=== PATIENT | female | born 1990 | race Caucasian/White ===

== ENCOUNTER 2016-08-23 07:37 | Emergency (ER) | payer SELFPAY ==
[~2016-08-23] VITALS: Ht 157.5 cm; Wt 117.9 kg
[2016-08-23 11:55] VITALS: BP 124/67
== END 2016-08-23 11:55 | disposition home or self-care (01) ==
LOC: ED 07:37
DX: J20.9 Acute bronchitis, unspecified (principal); N39.0 Urinary tract infection, site not specified
CPT/HCPCS: Q0092

== ENCOUNTER 2017-07-22 17:24 | Emergency (ER) | payer SELFPAY ==
[~2017-07-22] VITALS: Ht 157.5 cm; Wt 119.7 kg
[2017-07-22 17:28] VITALS: Ht 157.5 cm; Wt 119.7 kg
[2017-07-22 19:25] VITALS: BP 125/75
== END 2017-07-22 19:25 | disposition home or self-care (01) ==
LOC: ED 17:24
DX: T23.221A Burn of second degree of single right finger (nail) except thumb, initial encounter (principal); X08.8XXA Exposure to other specified smoke, fire and flames, initial encounter; Y93.89 Activity, other specified; Y92.89 Other specified places as the place of occurrence of the external cause; Y99.8 Other external cause status

== ENCOUNTER 2017-12-24 06:45 | Emergency (ER) | payer SELFPAY ==
[~2017-12-24] VITALS: Ht 157.5 cm; Wt 123.4 kg
[2017-12-24 06:51] VITALS: Ht 157.5 cm; Wt 123.4 kg
[2017-12-24 08:10] LABS: UA SPECIFIC GRAVITY >=1.030 (1.005-1.035); microscopic required? YES; urine erythrocyte 3+ (NEGATIVE)
[2017-12-24 08:18] LABS: BASOPHIL % 0.9 % (0-2); PLATELET COUNT 227 x10^3mcL (130-400); RED CELL DISTRIBUTION WIDTH 13.9 % (11.5-14.5)
[2017-12-24 09:19] LABS: ALBUMIN 3.5 g/dL (3.4-5.0); ALKALINE PHOSPHATASE 69 U/L (46-116); ALT/SGPT 50 U/L (14-59); AST/SGOT 24 U/L (15-37); BILIRUBIN TOTAL 0.6 mg/dL (0.20-1.00); CALCIUM 7.8 mg/dL (8.5-10.1); CHLORIDE SERUM 104 mmol/L (98-107); CREATININE SERUM 0.5 mg/dL (0.6-1.0); GFR1 > 60 mL/min; GLUCOSE SERUM 90 mg/dL (74-106); POTASSIUM SERUM 3.6 mmol/L (3.5-5.1); SODIUM SERUM 137 mmol/L (136-145); TOTAL PROTEIN, SERUM 6.9 g/dL (6.4-8.2)
[2017-12-24 09:40] VITALS: BP 145/76
[2017-12-24 09:48] LABS: CARBON DIOXIDE 21 mmol/L (21-32)
== END 2017-12-24 09:40 | disposition home or self-care (01) ==
LOC: ED 06:45
PROVIDERS: Emergency Medicine
DX: O26.899 Other specified pregnancy related conditions, unspecified trimester (principal); R51 Headache; R11.10 Vomiting, unspecified; M25.529 Pain in unspecified elbow; M25.569 Pain in unspecified knee; R35.0 Frequency of micturition; R82.71 Bacteriuria; Z3A.00 Weeks of gestation of pregnancy not specified
CPT/HCPCS: J2765; J7030

== ENCOUNTER 2018-01-18 11:34 | Emergency (ER) | payer MEDICAID ==
[~2018-01-18] VITALS: Ht 157.5 cm; Wt 123.4 kg
[2018-01-18 11:53] VITALS: Ht 157.5 cm; Wt 123.4 kg
[2018-01-18 12:59] LABS: UA SPECIFIC GRAVITY >=1.030 (1.005-1.035); microscopic required? YES; urine erythrocyte 2+ (NEGATIVE)
[2018-01-18 12:59] LABS: BASOPHIL % 0.8 % (0-2); PLATELET COUNT 252 x10^3mcL (130-400); RED CELL DISTRIBUTION WIDTH 13.4 % (11.5-14.5)
[2018-01-18 13:09] LABS: CALCIUM 8.4 mg/dL (8.5-10.1); CARBON DIOXIDE 23.5 mmol/L (21-32); CHLORIDE SERUM 105 mmol/L (98-107); CREATININE SERUM 0.6 mg/dL (0.6-1.0); GFR1 > 60 mL/min; GLUCOSE SERUM 110 mg/dL (74-106); POTASSIUM SERUM 3.9 mmol/L (3.5-5.1); SODIUM SERUM 138 mmol/L (136-145)
[2018-01-18 14:38] VITALS: BP 114/56
== END 2018-01-18 14:38 | disposition home or self-care (01) ==
LOC: ED 11:34
PROVIDERS: Emergency Medicine
DX: O23.41 Unspecified infection of urinary tract in pregnancy, first trimester (principal); Z3A.09 9 weeks gestation of pregnancy
CPT/HCPCS: J7030

== ENCOUNTER 2018-02-28 22:36 | Emergency (ER) | payer MEDICAID ==
[~2018-02-28] VITALS: Ht 157.5 cm; Wt 122.9 kg
[2018-02-28 22:45] VITALS: Ht 157.5 cm; Wt 122.9 kg
[2018-03-01 00:28] VITALS: BP 104/70
== END 2018-03-01 00:28 | disposition home or self-care (01) ==
LOC: ED 22:36
DX: O23.42 Unspecified infection of urinary tract in pregnancy, second trimester (principal); Z88.0 Allergy status to penicillin; Z3A.15 15 weeks gestation of pregnancy

== ENCOUNTER 2018-03-27 17:18 | Emergency (ER) | payer MEDICAID ==
[~2018-03-27] VITALS: Ht 157.5 cm; Wt 124.5 kg
[2018-03-27 17:31] VITALS: Ht 157.5 cm; Wt 124.5 kg
[2018-03-27 18:28] VITALS: BP 118/79
== END 2018-03-27 18:28 | disposition home or self-care (01) ==
LOC: ED 17:18
DX: K11.6 Mucocele of salivary gland (principal); O26.892 Other specified pregnancy related conditions, second trimester; Z3A.16 16 weeks gestation of pregnancy; Z88.0 Allergy status to penicillin; Z88.8 Allergy status to other drugs, medicaments and biological substances; Z90.89 Acquired absence of other organs
CPT/HCPCS: J2001

== ENCOUNTER 2018-05-03 13:41 | Emergency (ER) | payer MEDICAID ==
[~2018-05-03] VITALS: Ht 157.5 cm; Wt 128.8 kg
[2018-05-03 14:06] VITALS: Ht 157.5 cm; Wt 128.8 kg
[2018-05-03 16:12] VITALS: BP 139/71
== END 2018-05-03 16:12 | disposition home or self-care (01) ==
LOC: ED 13:41
DX: O99.512 Diseases of the respiratory system complicating pregnancy, second trimester (principal); M54.6 Pain in thoracic spine; Z3A.24 24 weeks gestation of pregnancy; Z98.890 Other specified postprocedural states; Z88.0 Allergy status to penicillin; Z88.8 Allergy status to other drugs, medicaments and biological substances

== ENCOUNTER 2018-05-18 21:43 | Emergency (ER) | payer OTHER ==
[~2018-05-18] VITALS: Ht 157.5 cm; Wt 126.1 kg
[2018-05-18 21:57] VITALS: Ht 157.5 cm; Wt 126.1 kg
[2018-05-19 00:59] VITALS: BP 128/83
== END 2018-05-19 00:59 | disposition home or self-care (01) ==
LOC: ED 21:43
DX: O26.892 Other specified pregnancy related conditions, second trimester (principal); G56.01 Carpal tunnel syndrome, right upper limb; Z88.0 Allergy status to penicillin; Z3A.27 27 weeks gestation of pregnancy; Z88.8 Allergy status to other drugs, medicaments and biological substances; Z90.89 Acquired absence of other organs

== ENCOUNTER 2018-08-21 11:01 | Emergency (ER) | payer OTHER ==
[~2018-08-21] VITALS: Ht 157.5 cm; Wt 122.5 kg
[2018-08-21 11:06] VITALS: BP 112/81; Ht 157.5 cm; Wt 122.5 kg
== END 2018-08-21 12:49 | disposition home or self-care (01) ==
LOC: ED 11:01
DX: O90.0 Disruption of cesarean delivery wound (principal); Z91.041 Radiographic dye allergy status; Z90.89 Acquired absence of other organs; Z98.890 Other specified postprocedural states
CPT/HCPCS: J0696

== ENCOUNTER 2019-01-05 19:28 | Emergency (ER) | payer OTHER ==
[~2019-01-05] VITALS: Ht 157.5 cm; Wt 133.4 kg
[2019-01-05 19:31] VITALS: Ht 157.5 cm; Wt 133.4 kg
[2019-01-05 20:43] LABS: BASOPHIL % 0.6 % (0-2); PLATELET COUNT 245 x10^3mcL (130-400); RED CELL DISTRIBUTION WIDTH 13.8 % (11.5-14.5)
[2019-01-05 20:48] LABS: CALCIUM 8.4 mg/dL (8.5-10.1); CARBON DIOXIDE 27.1 mmol/L (21-32); CHLORIDE SERUM 108 mmol/L (98-107); CREATININE SERUM 0.7 mg/dL (0.6-1.0); GFR1 > 60 mL/min; GLUCOSE SERUM 78 mg/dL (74-106); POTASSIUM SERUM 3.9 mmol/L (3.5-5.1); SODIUM SERUM 142 mmol/L (136-145)
[2019-01-05 22:38] VITALS: BP 115/66
== END 2019-01-05 22:38 | disposition home or self-care (01) ==
LOC: ED 19:28
PROVIDERS: Emergency Medicine
DX: M54.5 Low back pain (principal); R07.89 Other chest pain; Z88.8 Allergy status to other drugs, medicaments and biological substances; Z90.89 Acquired absence of other organs
CPT/HCPCS: 36415; Q0092

== ENCOUNTER 2019-07-26 19:45 | Emergency (ER) | payer OTHER ==
[~2019-07-26] VITALS: Ht 160 cm; Wt 132.0 kg
[2019-07-26 19:58] VITALS: Ht 160 cm; Wt 132.0 kg
[2019-07-26 21:10] VITALS: BP 110/56
== END 2019-07-26 21:10 | disposition home or self-care (01) ==
LOC: ED 19:45
DX: R11.2 Nausea with vomiting, unspecified (principal); T44.5X5A Adverse effect of predominantly beta-adrenoreceptor agonists, initial encounter; Z90.89 Acquired absence of other organs; Z88.8 Allergy status to other drugs, medicaments and biological substances; Y92.89 Other specified places as the place of occurrence of the external cause